=== PATIENT | female | born 1975 | race American Indian/Alaskan Native ===

== ENCOUNTER 2016-08-13 17:05 | Emergency (ER) | payer MEDICAID ==
[~2016-08-13 17:05] MED LIST: traMADol 50 MG Tab PO ONE
[2016-08-13 17:12] VITALS: BP 143/93
--- NOTE | 2016-08-13 17:31 | EDM.PDOC ---
ED HPI GENERAL MEDICAL PROBLEM - General Chief Complaint: Lower Extremity Injury/Pain Stated Complaint: ROLLED ANKLE Time Seen by Provider: 08/13/16 17:20 Source of Information: Reports: Patient History Limitations: Reports: No Limitations - History of Present Illness INITIAL COMMENTS - FREE TEXT/NARRATIVE: Valerie is a 41 yo female who presents to the ER with complaints of right foot pain. States she mis-stepped going down the stairs and fell 2 stairs falling awkwardly onto her right foot. States it happened about an hour ago and is unable to now bear weight. Onset: Today Duration: Constant Location: Reports: Lower Extremity, Right (foot) Severity: Moderate Context: Reports: Other (stairs) Associated Symptoms: Reports: No Other Symptoms Right Feet Pain Score (Numeric/FACES): 7 - Related Data Allergies Allergy/AdvReac Type Severity Reaction Status Date / Time iron sucrose complex Allergy Severe Anaphylactic Verified 08/13/16 17:12 [From Venofer] Shock acetaminophen [From Midrin] Allergy Chest Verified 08/13/16 17:12 Tightness dichloralphenazone Allergy Chest Verified 08/13/16 17:12 [From Midrin] Tightness iron Allergy Anaphylactic Verified 08/13/16 17:12 Shock isometheptene mucate Allergy Chest Verified 08/13/16 17:12 [From Midrin] Tightness Sulfa (Sulfonamide Allergy Hives Verified 08/13/16 17:12 Antibiotics) Home Meds: Home Meds Citalopram Hydrobromide [Celexa] 40 mg PO DAILY #30 06/16/15 [Rx] buPROPion [Wellbutrin] 75 mg PO DAILY 02/05/16 [History] Past Medical History Cardiovascular History: Reports: Heart Failure Other Cardiovascular History: CHF in the past Respiratory History: Reports: None Gastrointestinal History: Reports: GERD Other OB/BYN History: 3 c-sections and a tubal ligation Musculoskeletal History: Reports: Arthritis, Back Pain, Chronic Psychiatric History: Reports: Anxiety, Depression, Suicide Attempt - Past Surgical History Respiratory Surgical History: Reports: None GI Surgical History: Reports: None Social & Family History - Family History Family Medical History: Noncontributory - Tobacco Use Smoking Status *Q: Current Every Day Smoker Years of Tobacco use: 24 Packs/Tins Daily: 0.2 Used Tobacco, but Quit: No Second Hand Smoke Exposure: Yes - Caffeine Use Caffeine Use: Reports: Coffee, Soda - Alcohol Use Days Per Week of Alcohol Use: 1 Number of Drinks Per Day: 1 Total Drinks Per Week: 1 - Recreational Drug Use Recreational Drug Use: No - Sexual History Sexual History: Reports: Sexually Active - Living Situation & Occupation Living situation: Reports: , with Family Occupation: Employed Review of Systems - Review of Systems Review Of Systems: ROS reveals no pertinent complaints other than HPI. Musculoskeletal: Reports: Foot Pain (right ). Denies: Joint Swelling Skin: Reports: No Symptoms ED EXAM, GENERAL - Physical Exam Exam: See Below Exam Limited By: No Limitations General Appearance: Alert, No Apparent Distress Extremities: Limited Range of Motion (Increased discomfort with palpation over anterior foot along proximal metatarsals and with inversion of foot. ), Other ( mild swelling to lateral aspect of foot. ). No: Slow Capillary Refill Neurological: No Motor/Sensory Deficits (distal digits intact) Psychiatric: Normal Affect, Normal Mood Skin Exam: Warm, Dry, Intact Course - Vital Signs Last Recorded V/S: Last Vital Signs Temp 99.7 F 08/13/16 17:09 Pulse 88 08/13/16 17:09 Resp 16 08/13/16 17:09 BP 143/93 H 08/13/16 17:09 Pulse Ox 98 08/13/16 17:09 - Orders/Labs/Meds Orders: Active Orders 24 hr Category Date Time Status Foot Comp Min 3V Rt [CR] Stat Exams 08/13/16 17:13 Ordered Departure - Departure Time of Disposition: 17:32 Disposition: Home, Self-Care 01 Condition: Good Clinical Impression: Contusion of foot, right Qualifiers: Encounter type: initial encounter Qualified Code(s): S90.31XA - Contusion of right foot, initial encounter Sprain of foot, right Qualifiers: Encounter type: initial encounter Qualified Code(s): S93.601A - Unspecified sprain of right foot, initial encounter - Discharge Information Instructions: Foot Sprain, Foot Contusion, [id number] Forms: ED Department Discharge Additional Instructions: 1) RICE therapy - rest, ice, compression and elevation 2) Ibuprofen 600 mg every 6 hours as needed for discomfort and swelling 3) Tramadol 50mg - 1 tablet every 12 hours as needed for break thru pain 4) Use crutches for assistance. 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 - Problem List & Annotations (1) Contusion of foot, right SNOMED Code(s): 87299626 Code(s): S90.31XA - CONTUSION OF RIGHT FOOT, INITIAL ENCOUNTER Status: Acute Qualifiers: Encounter type: initial encounter Qualified Code(s): S90.31XA - Contusion of right foot, initial encounter (2) Sprain of foot, right SNOMED Code(s): 86600266 Code(s): S93.601A - UNSPECIFIED SPRAIN OF RIGHT FOOT, INITIAL ENCOUNTER Status: Acute Qualifiers: Encounter type: initial encounter Qualified Code(s): S93.601A - Unspecified sprain of right foot, initial encounter - Problem List Review Problem List Initiated/Reviewed/Updated: Yes - My Orders Last 24 Hours: My Active Orders 08/13/16 17:13 Foot Comp Min 3V Rt [CR] Stat - Assessment/Plan Last 24 Hours: My Active Orders 08/13/16 17:13 Foot Comp Min 3V Rt [CR] Stat Plan: No fractures identified on imaging. Further instructions given with care. Bobby wrap applied. Advise RICE therapy as mainstay of treatment. 4 tablets of Tramadol given for break thru pain; otherwise, advised to take ibuprofen as directed. Follow up if any concerns. Crutches fitted today as well d/t unable to bear weight.
[2016-08-13] MEDS ORDERED: Take Home: traMADol 50 MG, 4 Tab Pack PO ONE (17:34)
== END 2016-08-13 17:45 | disposition home or self-care (01) ==
LOC: CC.ED 17:05
DX: S93.601A Unspecified sprain of right foot, initial encounter (principal); S90.31XA Contusion of right foot, initial encounter; I50.9 Heart failure, unspecified; K21.9 Gastro-esophageal reflux disease without esophagitis; M19.90 Unspecified osteoarthritis, unspecified site; F32.9 Major depressive disorder, single episode, unspecified; F17.210 Nicotine dependence, cigarettes, uncomplicated; Z88.8 Allergy status to other drugs, medicaments and biological substances; Z98.51 Tubal ligation status; Z88.2 Allergy status to sulfonamides; W10.9XXA Fall (on) (from) unspecified stairs and steps, initial encounter
CPT/HCPCS: 73630-RT; 99283; A9270-GY

== ENCOUNTER 2018-10-23 18:12 | Emergency (ER) | payer MEDICAID ==
[2018-10-23 18:16] VITALS: BP 171/92
[2018-10-23] MEDS ORDERED: LORazepam 2 MG/ML Syringe IM ONE (18:35)
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
[2018-10-23 19:20] LABS: CHLORIDE,CL 108 mEq/L (98-106); SODIUM,NA 142 mEq/L (136-145)
[2018-10-23] MEDS ORDERED: LORazepam 0.5 MG Tab PO ONE ×2 (20:22)
== END 2018-10-23 20:41 | disposition home or self-care (01) ==
LOC: CC.ED 18:12
DX: F41.9 Anxiety disorder, unspecified (principal); F32.9 Major depressive disorder, single episode, unspecified; I50.9 Heart failure, unspecified; Z88.2 Allergy status to sulfonamides; Z88.8 Allergy status to other drugs, medicaments and biological substances; Z88.6 Allergy status to analgesic agent; Z79.899 Other long term (current) drug therapy
CPT/HCPCS: 36415; 80053; 80305-QW; 81001; 81025; 85025; 96372; 99283; A9270-GY; G0480; J2060

== ENCOUNTER 2019-03-24 17:15 | Emergency (ER) | payer MEDICAID ==
[2019-03-24 17:26] VITALS: BP 146/88; PULSE 78
[2019-03-24 17:54] LABS: CHLORIDE,CL 103 mEq/L (98-106); SODIUM,NA 138 mEq/L (136-145)
--- NOTE | 2019-03-24 18:01 | EDM.PDOC ---
ED HPI GENERAL MEDICAL PROBLEM - General Chief Complaint: Back Pain or Injury Stated Complaint: POSSIBLE KIDNEY INFECTION Time Seen by Provider: 03/24/19 17:45 Source of Information: Reports: Patient History Limitations: Reports: No Limitations - History of Present Illness INITIAL COMMENTS - FREE TEXT/NARRATIVE: Patient presents to the ER with complaints of bilateral flank pain. Started having pain 4 days ago to the left flank area but now starting to radiate around to the left upper abdomen. No fevers. Admits to nausea without vomiting. Does not have much of an appetite. Denies burning with urination, no hematuria. Had a good BM today. Normal in nature. No recent injury. Has had intermittent issues with her back but "feels different than her normal with her back". Feels "deeper" Onset: Gradual Duration: Day(s): Location: Reports: Abdomen, Back Quality: Reports: Ache Severity: Moderate Improves with: Reports: Medication Associated Symptoms: Reports: Loss of Appetite, Nausea/Vomiting. 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: NSAIDS Left Middle Abdomen Pain Score (Numeric/FACES): 5 - Related Data Allergies Allergy/AdvReac Type Severity Reaction Status Date / Time iron sucrose complex Allergy Severe Anaphylactic Verified 03/24/19 17:27 [From Venofer] Shock acetaminophen [From Midrin] Allergy Chest Verified 03/24/19 17:27 Tightness dichloralphenazone Allergy Chest Verified 03/24/19 17:27 [From Midrin] Tightness iron Allergy Anaphylactic Verified 03/24/19 17:27 Shock isometheptene mucate Allergy Chest Verified 03/24/19 17:27 [From Midrin] Tightness Sulfa (Sulfonamide Allergy Hives Verified 03/24/19 17:27 Antibiotics) Past Medical History HEENT History: Reports: Impaired Vision Cardiovascular History: Reports: Heart Murmur Other Cardiovascular History: CHF in the past Respiratory History: Reports: None Gastrointestinal History: Reports: GERD, PUD [employer] History: Reports: Other [employer] History: 3 c-sections and a tubal ligation Musculoskeletal History: Reports: Arthritis, Back Pain, Chronic, Fracture, Fibromyalgia, Other (See Below) Other Musculoskeletal History: left ankle fracture Neurological History: Reports: Migraines Psychiatric History: Reports: Anxiety, Depression, Suicide Attempt - Past Surgical History Cardiovascular Surgical History: Reports: None Respiratory Surgical History: Reports: None GI Surgical History: Reports: Appendectomy Musculoskeletal Surgical History: Reports: Carpal Tunnel Social & Family History - Family History Family Medical History: Noncontributory Cardiac: Reports: Hypertension Other Cardiac Family History: Mother . Grandmother's heart stopped on mom's side. Endocrine/Metabolic: Reports: Diabetes, type II Other Endocrine/Metabolic Family History: Both mom and dad and a brother. - Tobacco Use Smoking Status *Q: Current Every Day Smoker Years of Tobacco use: 3 Packs/Tins Daily: 0.5 - Caffeine Use Caffeine Use: Reports: None - Recreational Drug Use Recreational Drug Use: No - Sexual History Sexual History: Reports: Sexually Active - Living Situation & Occupation Living situation: Reports: , with Family Occupation: Employed ED ROS GENERAL - Review of Systems Review Of Systems: See Below Constitutional: Reports: Malaise, Decreased Appetite. Denies: Fever, Chills, Weakness, Fatigue HEENT: Reports: No Symptoms Respiratory: Denies: Shortness of Breath, Cough Cardiovascular: Denies: Chest Pain, Edema, Lightheadedness Endocrine: Denies: Fatigue GI/Abdominal: Reports: Abdominal Pain, Nausea. Denies: Black Stool, Bloody Stool, Constipation, Diarrhea, Vomiting : Reports: No Symptoms Musculoskeletal: Reports: Back Pain Skin: Reports: No Symptoms Neurological: Reports: No Symptoms ED EXAM, GI/ABD - Physical Exam Exam: See Below Exam Limited By: No Limitations General Appearance: Alert, WD/WN, No Apparent Distress Ears: Normal External Exam, Normal TMs Nose: Normal Inspection, Normal Mucosa, No Blood Throat/Mouth: Normal Inspection, Normal Oropharynx Head: Normocephalic Neck: Normal Inspection, Supple, Non-Tender Respiratory/Chest: No Respiratory Distress, Lungs Clear, Normal Breath Sounds Cardiovascular: Regular Rate, Rhythm GI/Abdominal Exam: Normal Bowel Sounds, Soft, Tender (left upper quadrant) Back Exam: CVA Tenderness (L), CVA Tenderness (R) Extremities: Normal Inspection, No Pedal Edema Neurological: Alert, Oriented Skin Exam: Warm, Dry Course - Vital Signs Last Recorded V/S: Last Vital Signs Temp 98.5 F 03/24/19 17:25 Pulse 78 03/24/19 17:25 Resp 16 03/24/19 17:25 BP 146/88 H 03/24/19 17:25 Pulse Ox 100 03/24/19 17:25 - Orders/Labs/Meds Orders: Active Orders 24 hr Category Date Time Status BMP [BASIC METABOLIC PANEL,BMP] [CHEM] Stat Lab 03/24/19 17:32 Ordered CRP [C-REACTIVE PROTEIN] [CHEM] Stat Lab 03/24/19 17:32 Ordered Labs: Laboratory Tests 03/24/19 03/24/19 Range/Units 17:36 17:40 WBC 7.9 (5.0-10.0) 10^3/uL RBC 4.27 (4.00-5.50) 10^6/uL Hgb 11.3 L (12.0-16.0) g/dL Hct 35.4 L (37.0-47.0) % MCV 82.9 (82.0-94.0) fL MCH 26.5 L (27.0-32.0) pg MCHC 31.9 L (33.0-38.0) g/dL RDW Coeff of Ricardo 15.8 H (11.0-15.0) % Plt Count 366 (150-400) 10^3/uL Neut % (Auto) 64.0 (35-85) % Lymph % (Auto) 29.2 (10-55) % [place] % (Auto) 5.8 (0-16) % Eos % (Auto) 0.9 (0-5) % Baso % (Auto) 0.1 (0-3) % Neut # (Auto) 5.05 (1.80-7.00) 10^3/uL Lymph # (Auto) 2.31 (1.00-4.80) 10^3/uL [place] # (Auto) 0.46 (0.00-0.80) 10^3/uL Eos # (Auto) 0.07 (0.00-0.45) 10^3/uL Baso # (Auto) 0.01 10^3/uL Urine Color Yellow (YELLOW) Urine Appearance Clear (CLEAR) Urine pH 6.0 (4.5-8.0) Ur Specific [place] >= 1.030 H (1.003-1.020) Urine Protein Negative (NEGATIVE) mg/dL Urine Glucose (UA) Negative (NEGATIVE) mg/dL Urine Ketones Negative (NEGATIVE) mg/dL Urine Occult Blood Moderate H (NEGATIVE) Urine Nitrite Negative (NEGATIVE) Urine Bilirubin Negative (NEGATIVE) Urine Urobilinogen 0.2 (0.2-1.0) EU/dL Ur Leukocyte Esterase Negative (NEGATIVE) Urine RBC 5-10 H (0-5) /HPF Urine WBC 0-5 (0-5) /HPF Ur Squamous Epith Cells Few H (NOT SEEN) /HPF Urine Bacteria Occasional H (NOT SEEN) /HPF - Re-Assessments/Exams Free Text/Narrative Re-Assessment/Exam: 03/24/19 18:01 Lab results discussed with patient. Needs to push fluids. Will give Rocephin tonight. Start Bactrim tomorrow. May have associated musculoskeletal concerns , will need to follow up if symptoms do not improve. Departure - Departure Time of Disposition: 18:02 Disposition: Home, Self-Care 01 Condition: Good Clinical Impression: UTI (urinary tract infection), Back pain - Discharge Information *PRESCRIPTION DRUG MONITORING PROGRAM REVIEWED*: No *COPY OF PRESCRIPTION DRUG MONITORING REPORT IN PATIENT FAUSTINO: No Additional Instructions: 1. Push fluids 2. alternate tylenol with ibuprofen for fever or discomfort 3. Heat or ice to back for symptom relief. 4. Bactrim Ds one twice a day for 7 days 5. Follow up if back pain persists. Sepsis Event Note - Evaluation Sepsis Screening Result: No Definite Risk - Focused Exam Vital Signs: Vital Signs Temp Pulse Resp BP Pulse Ox 03/24/19 17:25 98.5 F 78 16 146/88 H 100 Date Exam was Performed: 03/24/19 Time Exam was Performed: 17:54 - My Orders Last 24 Hours: My Active Orders 03/24/19 17:32 BMP [BASIC METABOLIC PANEL,BMP] [CHEM] Stat CRP [C-REACTIVE PROTEIN] [CHEM] Stat - Assessment/Plan Last 24 Hours: My Active Orders 03/24/19 17:32 BMP [BASIC METABOLIC PANEL,BMP] [CHEM] Stat CRP [C-REACTIVE PROTEIN] [CHEM] Stat
[2019-03-24] MEDS: Lidocaine 1% 20 ML MDV INJECT ONE (18:04)
[2019-03-24] MEDS: cefTRIAXone 1 GM Vial IM ONE (18:04)
== END 2019-03-24 18:08 | disposition home or self-care (01) ==
LOC: CC.ED 17:15
DX: N39.0 Urinary tract infection, site not specified (principal); I50.9 Heart failure, unspecified; F17.210 Nicotine dependence, cigarettes, uncomplicated; Z88.8 Allergy status to other drugs, medicaments and biological substances; Z88.2 Allergy status to sulfonamides
CPT/HCPCS: 36415; 80048; 81001; 85025; 86140; 96372; 99284; J0696; J2001

== ENCOUNTER → 2021-06-12 | Day surgery (SDC) | payer BC, MEDICAID ==
[2021-06-12] MEDS: Lactated Ringers 1,000 ML IV SCH (08:50)
[2021-06-12] MEDS: Benzocaine 20% Topical Spray UD MUCMEM ONE (09:12)
[2021-06-12] MEDS: Meperidine PF 25 MG/ML SDV IV ONE (09:15)
[2021-06-12] MEDS: Midazolam 1 MG/ML 2 ML SDV IVPUSH ONE ×3 (09:16→09:33)
[2021-06-12] MEDS: Meperidine PF 25 MG/ML SDV IVPUSH ONE ×2 (09:24→09:27)
[2021-06-12 11:34] VITALS: BP 140/83; PULSE 76
== END ==
LOC: CC.SDS 07:54
PROVIDERS: ATTEND Family Medicine
DX: D12.3 Benign neoplasm of transverse colon (principal); K22.70 Barrett's esophagus without dysplasia; D50.9 Iron deficiency anemia, unspecified; K29.60 Other gastritis without bleeding; K44.9 Diaphragmatic hernia without obstruction or gangrene; K21.9 Gastro-esophageal reflux disease without esophagitis; F41.9 Anxiety disorder, unspecified; G47.00 Insomnia, unspecified; F17.210 Nicotine dependence, cigarettes, uncomplicated; Z88.2 Allergy status to sulfonamides; Z88.8 Allergy status to other drugs, medicaments and biological substances; Z79.899 Other long term (current) drug therapy; Z90.49 Acquired absence of other specified parts of digestive tract; Z98.890 Other specified postprocedural states
CPT/HCPCS: 36415; 84703; 87081; A9270-GY; J2175; J2250; J7120